=== PATIENT | male | born 1975 | race Caucasian/White ===

== ENCOUNTER 2021-04-08 10:40 | Emergency (ER) | payer SELFPAY ==
--- NOTE | ~2021-04-08 | CT_ITS ---
EXAMINATION: CT ABDOMEN AND PELVIS WITH CONTRAST CLINICAL INFORMATION: Left lower quadrant pain. Rule out diverticulitis. COMPARISON: None TECHNIQUE: Multidetector volumetric images were obtained from the superior aspect of the liver through the pubic symphysis following administration 85 mL of Omnipaque 350 intravenous contrast. Sagittal and coronal reformatted images were obtained on the technologist's workstation. Oral contrast: Yes This CT examination was performed using dose optimization techniques as appropriate, variously including the following: *Automated exposure control *Adjustment of mA and/or kV according to patient size (this includes techniques or standardized protocols for targeted exams where dose is matched to indication/reason for exam; i.e. extremities or head) *Use of iterative reconstruction technique DLP: 699 mGy-cm FINDINGS: LUNG BASES: The visualized lung bases are unremarkable. LIVER, GALLBLADDER, AND BILIARY TREE: The liver is low in attenuation suggestive of fatty infiltration. There is a small benign-appearing calcification high in the dome of the liver. No other focal liver lesion is seen. There are gallstones in the gallbladder. Gallbladder is otherwise unremarkable. There is no biliary duct dilatation. PANCREAS: Unremarkable. SPLEEN: Unremarkable. ADRENAL GLANDS: Unremarkable. KIDNEYS AND URETERS: There is a 1.8 x 2 cm right peripelvic cysts. Kidneys are otherwise unremarkable. BLADDER: Unremarkable. GASTROINTESTINAL TRACT: No evidence of diverticulosis or diverticulitis is seen. There is mild wall thickening of the ascending and descending colon and prominence of the vasa recta questionable for mild colitis. No evidence of megacolon or obstruction is seen. The small bowel is unremarkable. The appendix is not seen. ABDOMINAL WALL: No significant hernia is appreciated. LYMPH NODES: Normal. VASCULAR: Unremarkable. PELVIC VISCERA: Unremarkable. OSSEOUS STRUCTURES: There is mild curvature of the lumbar spine to the left. CT/CT abdomen pelvis w con IMPRESSION: Fatty liver. Gallstones. Question mild colitis of the ascending and descending colon.
[2021-04-08 11:01] VITALS: BP 133/80; PULSE 89; RESP 18; TEMP 36.7; O2SAT 98; BMI 25.8
[2021-04-08 12:36] LABS: MANUAL DIFF FLAG NO
[2021-04-08 12:38] LABS: Basophils Percent Auto 0.4 % (0-2); Eosinophils Percent Auto 0.3 % (0-4); Hemoglobin 15.4 g/dl (14.0-18.0); Imm Gran Abs Auto 0.02 X10*3/uL (0.00-0.03); Imm Gran Pct Auto 0.3 % (0.0-0.4); Lymphocytes Absolute Auto 0.9 X10*3/uL (1.2-4.9); Lymphocytes Percent Auto 12.4 % (20-40); Mean Corpuscular HGB Conc 33.5 g/dl (31.0-36.0); Mean Corpuscular Hemoglobin 32.2 pg (27.0-33.0); Monocytes Absolute Auto 0.5 X10*3/uL (0.1-1.2); Monocytes Percent Auto 6.7 % (2-11); Neutrophils Absolute Auto 5.5 X10*3/uL (2.0-8.3); Neutrophils Percent Auto 79.9 % (45-73); Platelet Count 202 X10*3/uL (160-400); Red Blood Count 4.79 X10*6/uL (4.60-5.80); White Blood Count 6.9 X10*3/uL (4.8-10.8)
[2021-04-08 13:07] LABS: Alanine Aminotransferase 44 U/L (0-40); Albumin Level 4.5 g/dL (3.5-5.0); Alkaline Phosphatase 63 U/L (39-117); Anion Gap 13 (12-20); Aspartate Amino Transferase 42 U/L (5-37); Bilirubin Direct 0.3 mg/dL (0.0-0.5); Bilirubin Total 0.8 mg/dL (0.0-1.0); Blood Urea Nitrogen 19 mg/dL (9-16); Calcium 9.4 mg/dL (8.4-10.2); Carbon Dioxide 29 mmol/L (22-29); Chloride 105 mmol/L (96-108); Creatinine Clr Calc Pharmacy 103.6; Estimated Glomerular Filt Rate > 60; Glucose Random 90 mg/dL (60-115); Lipase 28 U/L (8-78); Sodium 142 mmol/L (135-145); Total Protein 7.3 g/dL (6.5-8.0)
[2021-04-08 13:49] VITALS: BP 133/77; PULSE 84; RESP 16; TEMP 37.2; O2SAT 99
--- NOTE | 2021-04-08 13:59 | ED.ABDPAIN ---
HPI - Abdominal Pain General Chief Complaint: Abdominal Pain Stated Complaint: abd pain Time Seen by Provider: 04/08/21 13:16 Source: patient Mode of arrival: ambulatory Limitations: no limitations History of Present Illness HPI narrative: 45 yo male with past medical history of multiple abdominal surgeries, chronic alcohol use here with complaints of generalized abdominal pain intermittent but worsened today in the left lower abdomen worsened with nausea. NO vomiting. Has bowel incontinence when he drinks which he has had for years and is not new. Worsened when he drinks and he drinks alcohol more then 12beers per day. Denies history of liver disease but it sounds like patient does not have a PCP, insurance or see any other specialists. Denies black or bloody stools. No vomiting. No fevers, chills, urinary symptoms. MD elicited complaint: abdominal pain Related Data Previous Rx's Medication Instructions Recorded levofloxacin 750 mg PO DAILY 7 Days #7 tab 04/08/21 metronidazole [Flagyl] 500 mg PO TID #21 tab 04/08/21 Allergies Allergy/AdvReac Type Severity Reaction Status Date / Time No Known Allergies Allergy Unverified 07/04/20 17:16 [No Known Allergies*] Review of Systems Review of Systems Yes all other systems are reviewed and are negative Constitutional: Reports no additional constitutional complaints, Denies body ache(s), Denies chills, Denies fever(s), Denies headache(s) and Denies weakness Eyes: Reports no additional eye complaints and Denies change in vision Reports system reviewed and no additional complaints, except as documented, Denies dizziness, Denies headache(s), Denies nasal congestion, Denies nasal discharge and Denies neck pain Cardiovascular: Reports no additional cardiovascular complaints, Denies chest pain, Denies leg edema and Denies dyspnea Respiratory: Reports no additional respiratory complaints, Denies cough and Denies dyspnea Gastrointestinal: Reports no additional gastrointestinal complaints, Reports abdominal pain, Reports fecal incontinence, Reports diarrhea, Denies nausea and Denies vomiting Genitourinary: Denies urinary incontinence Musculoskeletal: Reports no additional musculoskeletal complaints, Denies back pain, Denies arthralgias, Denies joint swelling, Denies neck pain, Denies numbness and Denies tingling Skin/Breast: Reports system reviewed and no additional complaints, except as docu and Denies rash Reports system reviewed and no additional complaints, except as documented, Denies Abnormal speech present, Denies dizziness, Denies headache(s), Denies numbness, Denies tingling and Denies weakness Physical Exam Vital Signs: Vital Signs: Last Vital Signs Temp 98.7 F 04/08/21 15:35 Pulse 68 04/08/21 15:35 Resp 20 04/08/21 15:35 BP 129/85 04/08/21 15:35 Pulse Ox 96 04/08/21 15:35 Body Mass Index 25.8 Const: General: cooperative, healthy appearing, comfortable and no acute distress Orientation/consciousness: patient oriented x3 Limitations: no limitations HENMT: Head: Yes normal to inspection Ears: hearing grossly normal bilaterally General nose exam: Normal external nose present Face and sinus: Yes normal facial exam Mouth: Normal oral and palatal mucosa present Throat: Yes posterior oropharynx normal Eyes: General: appearance normal, both eyes and all related structures Pupils: Equal, round and reactive pupils present Neck: Neck: Yes normal visual inspection Chest: Chest palpation & inspection: normal inspection of the chest Resp: Effort & Inspection: normal respiratory effort Auscultation: clear to auscultation bilaterally Cardio: Rate: regular rate Rhythm: regular rhythm Peripheral pulses: Peripheral pulses 2+ throughout GI: Inspection: Yes normal to inspection Palpation (GI): Soft to palpation, Tenderness to palpation present (GI) (LLQ. no rebound ) and Guarding due to palpation present (GI) Auscultation: normal bowel sounds Rectal Exam - Male: Yes visual inspection normal, Yes normal sphincter tone and Yes heme negative stool (brown stool ) Back/Spine/Pelvis: Thoracic/Lumbar Spine: thoracic and lumbar spine normal to inspection Skin: General skin exam: no rashes or lesions noted Neuro: General: patient oriented x3, no focal motor deficits and normal sensation to monofilament Cranial nerves: Yes CN's II-XII intact bilaterally, Yes Equal, round and reactive pupils present, Yes Bilaterally intact EOM present, Yes Nystagmus not present, Yes Normal facial strength present and Yes Midline tongue present Cognition (Neuro): normal cognition Speech: No Abnormal speech present Gait exam (Neuro): Normal gait present Motor exam (neuro): 5/5 motor strength present throughout Extrem: General: Yes normal to inspection, Yes no pedal edema and Yes no calf tenderness Course Course Course Narrative: 45 yo male here with complaints of abdominal pain, bowel incontinence acute on chronic and worsened with alcohol intake. Drinking daily. Will need labs, UA, CT A/P and d/w with recovery team 1540-CT shows fatty liver, gallstones with no acute maury and mild colitis of the ascending and descending colon. Labs unremarkable. Pain well controlled. Stable vital signs and tolerating PO. Can manage with PO antibiotics. At this time patient is medically cleared for recovery team. 1650-Unfortunately recovery team unavailable till 6pm tonight. Family aware. Placed in physician observation pending above. 1700-Sign out to Lorne PA pending above. Placed in physician observation pending disposition. MDM - Abdominal Pain Medical Records Attestation: I reviewed the patient's medical records. Lab Data Attestation: I reviewed the patient's lab results. Result diagrams: 04/08/21 12:33 04/08/21 12:33 Labs: Lab Results 04/08/21 04/08/21 04/08/21 Range/Units 12:33 12:33 13:41 WBC 6.9 (4.8-10.8) X10*3/uL RBC 4.79 (4.60-5.80) X10*6/uL Hgb 15.4 (14.0-18.0) g/dl Hct 46.0 (42-52) % MCV 96.0 (80-98) fL MCH 32.2 (27.0-33.0) pg MCHC 33.5 (31.0-36.0) g/dl RDW 13.0 (11.0-16.0) % Plt Count 202 (160-400) X10*3/uL MPV 9.0 L (9.4-12.4) fL Immature Gran % (Auto) 0.3 (0.0-0.4) % Neut % (Auto) 79.9 H (45-73) % Lymph % (Auto) 12.4 L (20-40) % [place] % (Auto) 6.7 (2-11) % Eos % (Auto) 0.3 (0-4) % Baso % (Auto) 0.4 (0-2) % Lymph # (Auto) 0.9 L (1.2-4.9) X10*3/uL [place] # (Auto) 0.5 (0.1-1.2) X10*3/uL Eos # (Auto) 0.0 (0.0-0.4) X10*3/uL Baso # (Auto) 0.0 (0.0-0.2) X10*3/uL Abs Immat Gran (auto) 0.02 (0.00-0.03) X10*3/uL Absolute Neuts (auto) 5.5 (2.0-8.3) X10*3/uL Absolute Nucleated RBC 0.000 (0.0-0.012) X10*3/uL Nucleated RBC % (auto) 0.0 (0.0-0.2) /100WBC PT 11.7 (10.8-13.0) SEC INR 1.0 (0.9-1.1) Sodium 142 (135-145) mmol/L Potassium 5.0 (3.3-5.1) mmol/L Chloride 105 (96-108) mmol/L Carbon Dioxide 29 (22-29) mmol/L Anion Gap 13 (12-20) BUN 19 H (9-16) mg/dL Creatinine 0.88 (0.5-1.4) mg/dL Estim Creat Clear Calc 103.6 Estimated GFR > 60 Random Glucose 90 (60-115) mg/dL Calcium 9.4 (8.4-10.2) mg/dL Total Bilirubin 0.8 (0.0-1.0) mg/dL Direct Bilirubin 0.3 (0.0-0.5) mg/dL AST 42 H (5-37) U/L ALT 44 H (0-40) U/L Alkaline Phosphatase 63 (39-117) U/L Total Protein 7.3 (6.5-8.0) g/dL Albumin 4.5 (3.5-5.0) g/dL Lipase 28 (8-78) U/L Stool Occult Blood (NEGATIVE) Urine Opiates Screen (Not Detect) Ur Barbiturates Screen (Not Detect) Ur Phencyclidine Scrn (Not Detect) Ur Amphetamines Screen (Not Detect) U Benzodiazepines Scrn (Not Detect) Urine Cocaine Screen (Not Detect) U Marijuana (THC) Screen (Not Detect) Ethyl Alcohol mg/dL COVID-19 ([facility]) (Negative) COVID-19 Clin Com 04/08/21 04/08/21 04/08/21 Range/Units 13:41 13:41 13:41 WBC (4.8-10.8) X10*3/uL RBC (4.60-5.80) X10*6/uL Hgb (14.0-18.0) g/dl Hct (42-52) % MCV (80-98) fL MCH (27.0-33.0) pg MCHC (31.0-36.0) g/dl RDW (11.0-16.0) % Plt Count (160-400) X10*3/uL MPV (9.4-12.4) fL Immature Gran % (Auto) (0.0-0.4) % Neut % (Auto) (45-73) % Lymph % (Auto) (20-40) % [place] % (Auto) (2-11) % Eos % (Auto) (0-4) % Baso % (Auto) (0-2) % Lymph # (Auto) (1.2-4.9) X10*3/uL [place] # (Auto) (0.1-1.2) X10*3/uL Eos # (Auto) (0.0-0.4) X10*3/uL Baso # (Auto) (0.0-0.2) X10*3/uL Abs Immat Gran (auto) (0.00-0.03) X10*3/uL Absolute Neuts (auto) (2.0-8.3) X10*3/uL Absolute Nucleated RBC (0.0-0.012) X10*3/uL Nucleated RBC % (auto) (0.0-0.2) /100WBC PT (10.8-13.0) SEC INR (0.9-1.1) Sodium (135-145) mmol/L Potassium (3.3-5.1) mmol/L Chloride (96-108) mmol/L Carbon Dioxide (22-29) mmol/L Anion Gap (12-20) BUN (9-16) mg/dL Creatinine (0.5-1.4) mg/dL Estim Creat Clear Calc Estimated GFR Random Glucose (60-115) mg/dL Calcium (8.4-10.2) mg/dL Total Bilirubin (0.0-1.0) mg/dL Direct Bilirubin (0.0-0.5) mg/dL AST (5-37) U/L ALT (0-40) U/L Alkaline Phosphatase (39-117) U/L Total Protein (6.5-8.0) g/dL Albumin (3.5-5.0) g/dL Lipase 24 (8-78) U/L Stool Occult Blood NEGATIVE (NEGATIVE) Urine Opiates Screen (Not Detect) Ur Barbiturates Screen (Not Detect) Ur Phencyclidine Scrn (Not Detect) Ur Amphetamines Screen (Not Detect) U Benzodiazepines Scrn (Not Detect) Urine Cocaine Screen (Not Detect) U Marijuana (THC) Screen (Not Detect) Ethyl Alcohol < 10 mg/dL COVID-19 ([facility]) (Negative) COVID-19 Clin Com 04/08/21 04/08/21 Range/Units 13:45 13:46 WBC (4.8-10.8) X10*3/uL RBC (4.60-5.80) X10*6/uL Hgb (14.0-18.0) g/dl Hct (42-52) % MCV (80-98) fL MCH (27.0-33.0) pg MCHC (31.0-36.0) g/dl RDW (11.0-16.0) % Plt Count (160-400) X10*3/uL MPV (9.4-12.4) fL Immature Gran % (Auto) (0.0-0.4) % Neut % (Auto) (45-73) % Lymph % (Auto) (20-40) % [place] % (Auto) (2-11) % Eos % (Auto) (0-4) % Baso % (Auto) (0-2) % Lymph # (Auto) (1.2-4.9) X10*3/uL [place] # (Auto) (0.1-1.2) X10*3/uL Eos # (Auto) (0.0-0.4) X10*3/uL Baso # (Auto) (0.0-0.2) X10*3/uL Abs Immat Gran (auto) (0.00-0.03) X10*3/uL Absolute Neuts (auto) (2.0-8.3) X10*3/uL Absolute Nucleated RBC (0.0-0.012) X10*3/uL Nucleated RBC % (auto) (0.0-0.2) /100WBC PT (10.8-13.0) SEC INR (0.9-1.1) Sodium (135-145) mmol/L Potassium (3.3-5.1) mmol/L Chloride (96-108) mmol/L Carbon Dioxide (22-29) mmol/L Anion Gap (12-20) BUN (9-16) mg/dL Creatinine (0.5-1.4) mg/dL Estim Creat Clear Calc Estimated GFR Random Glucose (60-115) mg/dL Calcium (8.4-10.2) mg/dL Total Bilirubin (0.0-1.0) mg/dL Direct Bilirubin (0.0-0.5) mg/dL AST (5-37) U/L ALT (0-40) U/L Alkaline Phosphatase (39-117) U/L Total Protein (6.5-8.0) g/dL Albumin (3.5-5.0) g/dL Lipase (8-78) U/L Stool Occult Blood (NEGATIVE) Urine Opiates Screen Not Detected (Not Detect) Ur Barbiturates Screen Not Detected (Not Detect) Ur Phencyclidine Scrn Not Detected (Not Detect) Ur Amphetamines Screen Not Detected (Not Detect) U Benzodiazepines Scrn Not Detected (Not Detect) Urine Cocaine Screen Not Detected (Not Detect) U Marijuana (THC) Screen Not Detected (Not Detect) Ethyl Alcohol mg/dL COVID-19 ([facility]) Negative (Negative) COVID-19 Clin Com See Note Imaging Data CT scan - abdomen: Attestation: I personally reviewed and interpreted this imaging study as follows: Radiologist's impression: FINDINGS: LUNG BASES: The visualized lung bases are unremarkable. LIVER, GALLBLADDER, AND BILIARY TREE: The liver is low in attenuation suggestive of fatty infiltration. There is a small benign-appearing calcification high in the dome of the liver. No other focal liver lesion is seen. There are gallstones in the gallbladder. Gallbladder is otherwise unremarkable. There is no biliary duct dilatation. PANCREAS: Unremarkable. SPLEEN: Unremarkable. ADRENAL GLANDS: Unremarkable. KIDNEYS AND URETERS: There is a 1.8 x 2 cm right peripelvic cysts. Kidneys are otherwise unremarkable. BLADDER: Unremarkable. GASTROINTESTINAL TRACT: No evidence of diverticulosis or diverticulitis is seen. There is mild wall thickening of the ascending and descending colon and prominence of the vasa recta questionable for mild colitis. No evidence of megacolon or obstruction is seen. The small bowel is unremarkable. The appendix is not seen. ABDOMINAL WALL: No significant hernia is appreciated. LYMPH NODES: Normal. VASCULAR: Unremarkable. PELVIC VISCERA: Unremarkable. OSSEOUS STRUCTURES: There is mild curvature of the lumbar spine to the left. CT/CT abdomen pelvis w con IMPRESSION: Fatty liver. Gallstones. Question mild colitis of the ascending and descending colon. Discharge Plan Discharge Clinical Impression: Colitis, Alcohol abuse Patient Disposition: Home, Self-Care Instructions: Abuse of Alcohol (ED), Colitis (ED) Prescriptions: New metronidazole [Flagyl] 500 mg tablet 500 mg PO TID Qty: 21 RF: 0 levofloxacin 750 mg tablet 750 mg PO DAILY 7 Days Qty: 7 RF: 0 PMFSH Past Medical History Attestation statement: The following information was validated with the patient. Source: old records reviewed and nursing notes reviewed Medical History Alcohol abuse Social History Social History Advance Directives: No Advance Directives Information Provided: No
[2021-04-08 14:03] LABS: OBS Int Ctl Valid YES; OBS1 NEGATIVE (NEGATIVE)
[2021-04-08 14:07] LABS: Prothrombin Time 11.7 SEC (10.8-13.0)
[2021-04-08 14:14] LABS: Ethanol < 10 mg/dL
[2021-04-08 14:17] LABS: Lipase 24 U/L (8-78)
[2021-04-08 14:18] LABS: COVID-19 Test Negative (Negative); IDNOW Serial# 9DD0AD1C
[2021-04-08 14:45] LABS: Amphetamine Screen Urine Not Detected (Not Detect); Barbiturates, Urine Not Detected (Not Detect); Benzodiazepines Screen Urine Not Detected (Not Detect); Cannabinoid Screen Urine Not Detected (Not Detect); Cocaine Screen Urine Not Detected (Not Detect); Opiate Screen Urine Not Detected (Not Detect); Phencyclidine Screen Urine Not Detected (Not Detect)
[2021-04-08] MEDS: iohexoL 350 MG/ML 100 ML INFUS..BTL IV (15:24)
[2021-04-08 15:35] VITALS: BP 129/85; PULSE 68; RESP 20; TEMP 37.1; O2SAT 96
--- NOTE | 2021-04-08 17:51 | MHC.RECOVSUP ---
? Reason for consult Recovery resources o Current location: ED13 o Identified substance use concern: Alcohol - Withdrawal - Seeking ATS (detox) - Support ? Intervention: o Community resources provided o Harm reduction discussion ? Plan: o Patient to follow up with [facility] after discharge ? Additional information:patient is interested in going to a detox... But claims that tomorrow Morning will be better cause he cant just leave right now.. Patient was given [facility] information and suggest that he go there at 9am.
== END 2021-04-08 18:06 | disposition home or self-care (01) ==
PROVIDERS: Nurse Practitioner Family; Emergency Provider Emergency Medicine Emergency Medical Services
DX: K52.9 Noninfective gastroenteritis and colitis, unspecified (principal); F10.10 Alcohol abuse, uncomplicated; Z20.822 Contact with and (suspected) exposure to COVID-19
CPT/HCPCS: 36415; 74177; 80048; 80076; 80307; 82077; 82272; 83690; 85025; 85610; 87635; 99284; Q9967

== ENCOUNTER 2025-07-18 10:36 | Outpatient (REF) | payer MEDICAID, SELFPAY ==
--- OUTSIDE RECORDS SUMMARY | 2025-07-18 09:30 | XMS_ITS | Encounter Summary ---
Author Organization [employer] Address [address] [facility] [address] [place] [address] Care Team Providers Care Varitypist Name Role Phone Fabi Martino DO Primary Care Provider Encounter Details Date Type Department Care Team (Late st Contact Info) Description 07/18/2025 9:30 AM EDT Office Visit [facility] MEDICINE [address] [place], [place] [phone] Fabi Martino DO [address] [place], [place] [phone] Routine history and physical examination of adult (Primary Dx); Other hyperlipidemia; Anxiety and depression; Postprandial diarrhea; Decreased visual acuity; Alcohol abuse, in remission; History of hypertension; BMI 29.0-29.9,adult; Dietary counseling; Exercise counseling; Encounter for vaccination; Encounter for immunization Social History Tobacco Use Types Packs/Day Years Used Date Smoking Tobacco: Never Smokeless Tobacco: Never Tobacco Cessation:Counseling Given: Not Answered Alcohol Use Standard Drinks/Week Comments Never 0 (1 standard drink = 0.6 oz pur e alcohol) Depression Answer Date Recorded Patient Health Questionnaire-9 Score 18 07/18/2025 Patient Health Questionnaire-9 Score 18 07/18/2025 Last PHQ-9: Questionnaire Data Not on file 1 Housing Stability Answer Date Recorded What is your housing situation today? I do not have housing (Staying with others, in a hotel, in a jail, living outside on the street, on a beach, in a car, or in a park 07/18/[address] you li ve. Do you have problems with any of the following? None of the above 07/18/2025 Food Insecurity Answer Date Recorded Within the past 12 months, y ou worried that your food would run out before you got money to buy more: Never True 07/18/2025 Within the past 12 months,th e food you bought just didn't last and you didn't have enough money to get more: Never True 10/2024 Transportation Answer Date Recorded In the past 12 months, has l ack of transportation kept you from medical appts, meetings, work or from getting things needed for daily living? Yes, it has kept me from non-medical meetings, work, or getting things that I need 07/18/2025 Utilities Answer Date Recorded In the past 12 months, has t he electric, gas, oil or water company threatened to shut off services in your home? No 07/18/2025 Depression Answer Date Recorded Patient Health Questionnaire-2 Score 6 07/18/2025 Internet Access Answer Date Recorded Internet Access Q1 Yes 07/18/2025 Internet Access Q2 Not on file 07/18/2025 Sex and Gender Information Value Date Recorded Sex Assigned at Male 02/16/2025 10:03 AM EDT Legal Sex Male 11:02 AM EDT Gender Identity Male 02/16/2025 10:03 AM EDT Sexual Orientation Straight 02/16/2025 10 :03 AM EDT documented as of this encounter Last Filed Vital Signs Vital Sign Reading Time Taken Comments Blood Pressure 130/80 07/18/2025 9:29 AM EDT Pulse 90 07/18/2025 9:29 AM EDT Temperature 36.6 C (97.9 F) 07/18/2025 9:29 AM EDT Respiratory Rate 21 07/18/2025 9:29 AM EDT Oxygen Saturation 99% 07/18/2025 9:29 AM EDT Inhaled Oxygen Concentration - - Weight 91.6 kg (202 lb) 07/18/2025 9:29 AM EDT Height 175.3 cm (5' 9 ) 07/18/2025 9:29 AM EDT Body Mass Index 29.83 07/18/2025 9:29 AM EDT documented in this encounter Functional Status * Over the past 2 weeks, how often have you been bothered by any of the following problems? Question Answer Date of Assessment Author Patient Health Questionnaire -2 Score 6 07/18/2025 10:02 AM EDT Oriana Redman MA * Little interest or pleasure in doing things Answer Date of Assessment Author Nearly every day 07/18/2025 10:02 AM EDT Oriana Redman MA * Feeling down, depressed, or hopeless Answer Date of Assessment Author Nearly every day 07/18/2025 10:02 AM Oriana Landeros MA * Trouble falling or staying asleep, or sleeping too much Answer Date of Assessment Author Nearly every day 07/18/2025 10:02 AM Oriana Landeros MA * Feeling tired or having little energy Answer Date of Assessment Author Several days 07/18/2025 10:02 AM Oriana Landeros MA * Poor appetite or overeating Answer Date of Assessment Author Several days 07/18/2025 10:02 AM Oriana Landeros MA * Feeling bad about yourself - or that you are a failure or have let yourself or your family down Answer Date of Assessment Author Several days 07/18/2025 10:02 AM Oriana Landeros MA * Trouble concentrating on things, such as reading the newspaper or watching television Answer Date of Assessment Author Nearly every day 07/18/2025 10:02 AM Oriana Landeros MA * Moving or speaking so slowly that other people could have noticed? Or the opposite - being so fidgety or restless that you have been moving around a lot more than usual. Answer Date of Assessment Author Nearly every day 07/18/2025 10:02 AM Oriana Landeros MA * Thoughts that you would be better off or hurting yourself in some way Answer Date of Assessment Author Not at all 07/18/2025 10:02 AM Oriana Landeros MA * Patient Health Questionnaire-9 Score Answer Date of Assessment Author 18 07/18/2025 10:02 AM Oriana Landeros MA * How difficult have these problems made it for you to do your work, take care of things at home, or get along with other people? Answer Date of Assessment Author Extremely difficult 07/18/2025 10:02 AM Oriana Beatty MA * Over the last 2 weeks, how often have you been bothered by any of the following problems? Question Answer Date of Assessment Author Feeling nervous, anxious, or on edge 3 07/18/2025 10:03 AM EDT Oriana Redman MA Not being able to stop or co ntrol worrying 3 07/18/2025 10:03 AM EDT Oriana Redman MA Worrying too much about diff erent things 3 07/18/2025 10:03 AM EDT Oriana Redman MA Trouble relaxing 3 07/18/2025 10:03 AM EDT Oriana Redman MA Being so restless that it is hard to sit still 3 07/18/2025 10:03 AM EDT Oriana Redman MA Becoming easily annoyed or irritable 3 07/18/2025 10:03 AM EDT Oriana Redman MA Feeling afraid as if somethi ng awful might happen 2 07/18/2025 10:03 AM EDT Oriana Redman MA MANOLO-7 Total Score 20 07/18/2025 10:03 AM EDT Oriana Redman MA documented as of this encounter Plan of Treatment Scheduled Orders Name Type Priority Associated Diagnoses Orde r Schedule T4, Free Lab Routine Routine history and physical examination of adult Other hyperlipidemia Anxiety and depression Postprandial diarrhea BMI 29.0-29.9,adult Expected: 07/18/2025 (Approximate), Expires: 07/18/2026 Vitamin D, 25-Hydroxy, Total, Immunoassay Lab Routine Routine history and physical examination of adult Other hyperlipidemia Anxiety and depression Postprandial diarrhea BMI 29.0-29.9,adult Expected: 07/18/2025 (Approximate), Expires: 07/18/2026 Lipid Panel, Standard Lab Routine Routine history and physical examination of adult Other hyperlipidemia Anxiety and depression Postprandial diarrhea BMI 29.0-29.9,adult Expected: 07/18/2025 (Approximate), Expires: 07/18/2026 TSH Lab Routine Routine history and physical examination of adult Other hyperlipidemia Anxiety and depression Postprandial diarrhea BMI 29.0-29.9,adult Expected: 07/18/2025 (Approximate), Expires: 07/18/2026 Hepatic Function Panel Lab Routine Routine history and physical examination of adult Other hyperlipidemia Anxiety and depression Postprandial diarrhea BMI 29.0-29.9,adult Expected: 07/18/2025 (Approximate), Expires: 07/18/2026 Hemoglobin A1c Lab Routine Routine history and physical examination of adult Other hyperlipidemia Anxiety and depression Postprandial diarrhea BMI 29.0-29.9,adult Expected: 07/18/2025 (Approximate), Expires: 07/18/2026 Basic Metabolic Panel Lab Routine Routine history and physical examination of adult Other hyperlipidemia Anxiety and depression Postprandial diarrhea BMI 29.0-29.9,adult Expected: 07/18/2025 (Approximate), Expires: 07/18/2026 CBC Lab Routine Routine history and physical examination of adult Other hyperlipidemia Anxiety and depression Postprandial diarrhea BMI 29.0-29.9,adult Expected: 07/18/2025, Expires: 07/18/2026 Albumin, Random Urine W/Creatinine Lab Routine Routine history and physical examination of adult Other hyperlipidemia Anxiety and depression Postprandial diarrhea BMI 29.0-29.9,adult Expected: 07/18/2025 (Approximate), Expires: 07/18/2026 Varicella zoster antibody, IgG Lab Routine Routine history and physical examination of adult Other hyperlipidemia Anxiety and depression Postprandial diarrhea BMI 29.0-29.9,adult Expected: 07/18/2025 (Approximate), Expires: 07/18/2026 Measles, Mumps, and Rubella (MMR) Antibodies (IgG) Panel, Immune Status Lab Routine Routine history and physical examination of adult Other hyperlipidemia Anxiety and depression Postprandial diarrhea BMI 29.0-29.9,adult Expected: 07/18/2025 (Approximate), Expires: 07/18/2026 Hepatitis B surface antigen, EIA Lab Routine Routine history and physical examination of adult Other hyperlipidemia Anxiety and depression Postprandial diarrhea BMI 29.0-29.9,adult Expected: 07/18/2025 (Approximate), Expires: 07/18/2026 Chlamydia/N. Gonorrhoeae RNA, TMA, Urogenitial Microbiology Routine Routine history and physical examination of adult Other hyperlipidemia Anxiety and depression Postprandial diarrhea BMI 29.0-29.9,adult Ordered: 07/18/2025 HIV-1/2 Antigen and Antibodies, Fourth Generation, with Reflexes Lab Routine Routine history and physical examination of adult Other hyperlipidemia Anxiety and depression Postprandial diarrhea BMI 29.0-29.9,adult Expected: 07/18/2025 (Approximate), Expires: 07/18/2026 Hepatitis C Antibody with Reflex to HCV, RNA, Quantitative, Real-Time PCR Lab Routine Routine history and physical examination of adult Other hyperlipidemia Anxiety and depression Postprandial diarrhea BMI 29.0-29.9,adult Expected: 07/18/2025, Expires: 07/18/2026 RPR (Monitor) with Reflex to Titer Lab Routine Routine history and physical examination of adult Other hyperlipidemia Anxiety and depression Postprandial diarrhea BMI 29.0-29.9,adult Expected: 07/18/2025, Expires: 07/18/2026 Hepatitis B Surface Antibody, Qualitative Lab Routine Routine history and physical examination of adult Other hyperlipidemia Anxiety and depression Postprandial diarrhea BMI 29.0-29.9,adult Expected: 07/18/2025 (Approximate), Expires: 07/18/2026 Hepatitis A Antibody, Total Lab Routine Routine history and physical examination of adult Other hyperlipidemia Anxiety and depression Postprandial diarrhea BMI 29.0-29.9,adult Expected: 07/18/2025 (Approximate), Expires: 07/18/2026 Hepatitis B Core Antibody, Total Lab Routine Routine history and physical examination of adult Other hyperlipidemia Anxiety and depression Postprandial diarrhea BMI 29.0-29.9,adult Expected: 07/18/2025 (Approximate), Expires: 07/18/2026 T-SPOT .TB Lab Routine Routine history and physical examination of adult Other hyperlipidemia Anxiety and depression Postprandial diarrhea BMI 29.0-29.9,adult Expected: 07/18/2025 (Approximate), Expires: 07/18/2026 documented as of this encounter Visit Diagnoses Diagnosis Routine history and physical examination of adult- Primary Other hyperlipidemia Anxiety and depression Postprandial diarrhea Decreased visual acuity Alcohol abuse, in remission Nondependent alcohol abuse, in remission History of hypertension Personal history of other diseases of circulatory system BMI 29.0-29.9,adult Dietary counseling Dietary surveillance and counseling Exercise counseling Encounter for vaccination Encounter for immunization documented in this encounter Additional Health Concerns Assessment Noted Time PHQ-9 Depression Total Score: 18 025 10:02 AM EDT documented as of this encounter Care Teams Varitypist Relationship Specialty Start Date End Date Fabi Martino DO [address] [place] [phone] PCP - General Family Medicine 07/18/25 documented as of this encounter
--- OUTSIDE RECORDS SUMMARY | 2025-07-18 12:12 | XMS_ITS | Encounter Summary ---
Author Organization [employer] Address [address] [facility] 7 [place] [address] Care Team Providers Care Engineering Technical Writer Name Role Phone Unavailable Primary Care Provider Unavailabl e Reason for Visit * Reason Onset Date Comments Chart Prep 07/17/2025 Encounter Details Date Type Department Care Team (Late st Contact Info) Description 07/17/2025 Telephone [facility] MEDICINE [address] [place], [place] [phone] Fabi Martino DO [address] [place], [place] [phone] Chart Prep Social History Tobacco Use Types Packs/Day Years Used Date Smoking Tobacco: Never Assessed Depression Answer Date Recorded Patient Health Questionnaire-9 Score 18 07/18/2025 Patient Health Questionnaire-9 Score 18 07/18/2025 Last PHQ-9: Questionnaire Data Not on file 1 Housing Stability Answer Date Recorded What is your housing situation today? I do not have housing (Staying with others, in a hotel, in a care home, living outside on the street, on a [...] AM EDT documented as of this encounter Miscellaneous Notes * Telephone Encounter - Oriana Redman MA - 07/17/2025 8:36 AM EDT Chart Prep Labs: not applicable Images: not applicable Referrals: not applicable Vaccines due: Covid, Flu, Tdap, and Hep B Screenings: colonoscopy Overdue care gaps: SBIRT, SDOH, PHQ-9, MANOLO-7, and Disability screen documented in this encounter Plan of Treatment Not on file documented as of this encounter Visit Diagnoses Not on filedocumented in this encounter
--- OUTSIDE RECORDS SUMMARY | 2025-07-18 12:12 | XMS_ITS | Encounter Summary ---
Author Organization [email or web address] Address [address] [facility] 7t [place] [address] Care Team Providers Care Tare Worker Name Role Phone Fabi Martino Primary Care Provider Encounter Details Date Type Department Care Team (Latest Contact Info) Description 07/18/2025 Travel Social History Tobacco Use Types Packs/Day Years Used Date Smoking Tobacco: Never Smokeless Tobacco: Never Alcohol Use Standard Drinks/Week Comments Never 0 [...] with others, in a hotel, in a fpc, living outside on the street, on a [...] AM EDT documented as of this encounter Functional Status * Over the [...] 10:02 AM EDT Oriana Redman MA * Trouble falling or staying asleep, [...] 10:02 AM EDT Oriana Redman MA * Thoughts that you would be better off or hurting yourself in some way Answer Date of Assessment Author Not at all 07/18/2025 10:02 AM EDT Oriana Redman MA * Patient Health Questionnaire-9 Score Answer Date of Assessment Author 18 07/18/2025 10:02 AM EDT Oriana Redman MA * How difficult have these problems made it for you to do your work, take care of things at home, or get along with other people? Answer Date of Assessment Author Extremely difficult 07/18/2025 10:02 AM EDT Oriana Buchanan MA * Over the last 2 weeks, [...] MANOLO-7 Total Score 20 07/18/2025 10:03 AM [employer] Oriana Redman MA documented as of this encounter Plan of Treatment Not on file documented as of this encounter Visit Diagnoses Not on filedocumented in this encounter Additional Health Concerns Assessment Noted Time PHQ-9 Depression Total Score: 18 025 10:02 AM EDT documented as of this encounter Care Teams Tare Worker Relationship Specialty Start Date End Date Fabi Martino DO [address] [place] [phone] PCP - General Family Medicine 07/18/25 documented as of this encounter
--- OUTSIDE RECORDS SUMMARY | 2025-07-18 12:12 | XMS_ITS | Clinical Summary ---
Author Organization [employer] Address [address] [facility] [address] [place] [address] Care Team Providers Care Analog Circuit Designer Name Role Phone Fabi Martino DO Primary Care Provider Allergies No known active allergies Medications atorvastatin (Lipitor) 20 MG tablet Take 1 tablet (20 mg) by mouth Once per day. 90 tablet 3 07/18/2025 Active Blood Pressure kit 1 each 1 (one) time per week. 1 kit 07/18/2025 Active polycarbophil (Fibercon) 625 MG tablet Take 1 tablet (625 mg) by mouth 2 times daily. 180 tablet 3 07/18/2025 Active sertraline (Zoloft) 25 MG tablet Take 1 tablet (25 mg) by mouth Once per day. 30 tablet 2 07/18/2025 Active hydrOXYzine pamoate (Vistaril) 25 MG capsule Take 1 capsule (25 mg) by mouth every 6 (six) hours if needed for anxiety. 30 capsule 2 07/18/2025 Active Active Problems Problem Noted Date Diagnosed Date BMI 29.0-29.9,adult 07/18/2025 Intellectual disability 07/18/2025 Hyperlipidemia 07/18/2025 History of hypertension 07/18/2025 Alcohol abuse, in remission 07/18/2025 Postprandial diarrhea 07/18/2025 Anxiety 07/18/2025 Major depression, recurrent, chronic 07/18/2025 Illiterate 07/18/2025 Encounters Date Type Department Care Team Description 07/18/2025 9:30 AM EDT Office Visit [facility] MEDICINE [address] [place] [phone] Fabi Martino DO Routine history and physical examination of adult (Primary Dx); Other hyperlipidemia; Anxiety and depression; Postprandial diarrhea; Decreased visual acuity; Alcohol abuse, in remission; History of hypertension; BMI 29.0-29.9,adult; Dietary counseling; Exercise counseling; Encounter for vaccination; Encounter for immunization 07/18/2025 Travel 07/17/2025 Telephone [facility] MEDICINE [address] [place] [address] Fabi Martino DO Chart Prep from Last 3 Months Immunizations Immunization Administration Dates Next Due Influenza, seasonal, injectable, preservative fr ee 07/18/2025 Pfizer Covid-19 Vaccine 12+ 07/18/2025 Tdap 07/18/2025 Family History Medical History Relation Name Comments Asthma Father Prostate cancer Father Sleep apnea Father Diabetes Maternal Grandmother Heart disease Maternal Grandmother Diabetes Mother Fibromyalgia Mother Hypertension Mother Diabetes Mother's Brother Heart disease Mother's Brother Heart disease Mother's Sister Relation Name Status Comments Father Maternal Grandmother Mother Mother's Brother Mother's Sister Social History Tobacco Use Types Packs/Day Years [...] with others, in a hotel, in a group home, living outside on the street, on [...] Orientation Straight 02/16/2025 10 :03 AM EDT Last Filed Vital Signs Vital Sign Reading [...] Mass Index 29.83 07/18/2025 9:29 AM EDT Plan of Treatment Health Maintenance Due Date Last Done Comments CT Colonography 1976 Colonoscopy 1976 Colorectal Cancer Screening 1976 FIT DNA/Cologuard 1976 FIT 1976 FOBT 1976 HIV Screening 1976 Lipid Panel 1976 Sigmoidoscopy 1976 Family Planning (PISQ) 1991 Hepatitis C Screening 1994 Hepatitis B Vaccines (1 of 3 - 19+ 3-dose series) 1995 Depression Monitoring 01/16/2026 07/18/2025 , 07/18/2025 Zoster Vaccines (1 of 2) 2026 Alcohol/Substance Use Screening 07/18/2026 07/18/2025 Disability Screening 07/18/2026 07/18/2025 SDOH Screening 07/18/2026 07/18/2025 Tobacco Screening 07/18/2026 07/18/2025 DTaP/Tdap/Td Vaccines (2 - T d or Tdap) 07/18/2035 07/18/2025 RSV Patients and Patients Aged 60 years or older (1 - 1-dose 75+ series) 2051 COVID-19 Vaccine Completed 07/18/2025 Influenza Vaccine Completed 07/18/2025 HIB Vaccines Aged Out No longer eligi ble based on patient's age to complete this topic HPV Vaccines Aged Out No longer eligi ble based on patient's age to complete this topic Hepatitis A Vaccines Aged Out No long er eligible based on patient's age to complete this topic IPV Vaccines Aged Out No longer eligi ble based on patient's age to complete this topic Meningococcal B Vaccine Aged Out No l onger eligible based on patient's age to complete this topic Meningococcal Vaccine Aged Out No vale sumi eligible based on patient's age to complete this topic Pneumococcal Vaccine: Pediatrics (0 to 5 Years) and At-Risk Patients (6 to 49) Years Aged Out No longer eligible b ased on patient's age to complete this topic RSV under 20 months Aged Out No longe r eligible based on patient's age to complete this topic Rotavirus Vaccines Aged Out No longer eligible based on patient's age to complete this topic Insurance Care Teams Analog Circuit Designer Relationship Specialty Start Date End Date Fabi Martino DO [address] [place] [phone] PCP - General Family Medicine 07/18/25
[2025-07-18 13:32] LABS: Hematocrit 46.3 % (42.0-52.0); Hemoglobin 15.9 g/dl (14.0-18.0); Mean Corpuscular HGB Conc 34.3 g/dl (31.0-36.0); Mean Corpuscular Hemoglobin 31.8 pg (27.0-33.0); Mean Corpuscular Volume 92.6 fL (80.0-98.0); NRBC Abs Auto 0.000 X10*3/uL (0.0-0.012); NRBC Pct Auto 0.0 /100WBC (0.0-0.2); Platelet Count 222 X10*3/uL (160-400); Red Blood Count 5.00 X10*6/uL (4.60-5.80); White Blood Count 6.0 X10*3/uL (4.8-10.8)
[2025-07-18 13:34] LABS: Hemoglobin A1C 150.2652 umol/L; Total Hemoglobin (HGBA1C) 4077.2545 umol/L
[2025-07-18 13:55] LABS: Alanine Aminotransferase 51 U/L (0-40); Albumin Level 4.7 g/dL (3.5-5.0); Alkaline Phosphatase 88 U/L (39-117); Anion Gap 10 (12-20); Aspartate Amino Transferase 44 U/L (5-37); Blood Urea Nitrogen 14 mg/dL (9-16); Calcium 9.5 mg/dL (8.4-10.2); Carbon Dioxide 30 mmol/L (22-29); Chloride 104 mmol/L (96-108); Cholesterol 251 mg/dL (<200); Estimated Glomerular Filt Rate > 60; HDL Cholesterol 53 mg/dL (>40); Potassium 4.1 mmol/L (3.3-5.1); Sodium 140 mmol/L (135-145); Total Protein 7.7 g/dL (6.5-8.0); Triglycerides 226 mg/dL (<150)
[2025-07-18 14:17] LABS: Free T4 (Free Thyroxine) 0.98 ng/dL (0.71-1.85); Thyroid Stimulating Hormone 3.84 uIU/mL (0.32-4.0)
[2025-07-18 14:24] LABS: Microalbum/Creatinine Ratio Ur 8.4 ug/mg cr (<30)
[2025-07-19 04:57] LABS: HBS Num1 0.32 mIU/mL (0-7.99); HBc Num1 0.05 S/CO (0.00-0.79); HBsAGNum1 0.37 S/CO (0.00-0.99); HIV Num 1 0.04 S/CO (0.00-0.99); Hepatitis B Surface Antigen Negative (Negative); ~HepC Num1 0.08 S/CO (0.00-0.79); ~Hepatitis B Surface Antibody NONREACTIVE (Nonreactive); ~Hepatitis C Antibody Nonreactive (Nonreactive)
[2025-07-19 06:54] LABS: Rubeola IgG (Measles) <13.50 AU/mL
[2025-07-20 05:42] LABS: ~Hepatitis A Antibody IgG 9.50 S/CO (0.00-0.99)
[2025-07-21 11:38] LABS: TS Negative Control Passed; TS Panel A 0; TS Panel B 2; TS Positive Control Passed; TSpotTB Negative (Negative)
== END 2025-07-18 10:37 | disposition home or self-care (01) ==
LOC: HO.HHCL 10:36
PROVIDERS: PCP Family Medicine; Visit Provider Family Medicine
DX: Z00.00 Encounter for general adult medical examination without abnormal findings (principal); Z11.4 Encounter for screening for human immunodeficiency virus [HIV]; Z11.1 Encounter for screening for respiratory tuberculosis; Z11.59 Encounter for screening for other viral diseases; Z11.3 Encounter for screening for infections with a predominantly sexual mode of transmission; E78.49 Other hyperlipidemia; F41.9 Anxiety disorder, unspecified; F32.A Depression, unspecified; R19.7 Diarrhea, unspecified; Z68.29 Body mass index [BMI] 29.0-29.9, adult
CPT/HCPCS: 36415; 80048; 80061; 80076; 82043; 82306; 82570; 83036; 84439; 84443; 85027; 86481; 86592; 86704; 86706; 86708; 86735; 86762; 86765; 86787; 86803; 87340; 87389